=== PATIENT | male | born 1960 | race African-American/Black ===

== ENCOUNTER 2021-01-27 14:09 | Outpatient (CLI) | payer OTHER | END 2021-01-27 14:10 | disposition home or self-care (01) | LOC: CSHMRI 14:09 | PROVIDERS: ATTEND Psychiatry & Neurology Neurology | DX: I66.01 Occlusion and stenosis of right middle cerebral artery (principal); E08.42 Diabetes mellitus due to underlying condition with diabetic polyneuropathy; M50.20 Other cervical disc displacement, unspecified cervical region; Z98.890 Other specified postprocedural states; M47.812 Spondylosis without myelopathy or radiculopathy, cervical region; I63.9 Cerebral infarction, unspecified; J32.0 Chronic maxillary sinusitis | CPT/HCPCS: 70553; 72141; 82565 ==